=== PATIENT | male | born 1960 | race Caucasian/White ===

== ENCOUNTER → 2024-10-03 08:25 | Outpatient (REF) | payer BC, MEDICARE, SELFPAY ==
[2024-10-03 09:01] LABS: Hematocrit 42.0 % (39.0-52.0); Hemoglobin 13.9 g/dL (13.0-18.0); Mean Corp Hgb Conc. 33.1 g/dL (33.0-37.0); Mean Corpuscular Volume 88.8 fL (80.0-94.0); Nucleated Red Blood Cells % 0 % (-); Platelet Count 234 10^3/uL (130-400); Red Cell Dist. Width 13.2 % (11.5-14.5)
[2024-10-03 09:52] LABS: ALT (SGPT) 26 U/L (0-50); AST (SGOT) 25 U/L (17-59); Albumin 4.4 g/dl (3.5-5.0); Alkaline Phosphatase 47 U/L (38-126); Blood Urea Nitrogen 22 mg/dl (9-20); Calcium 9.5 mg/dl (8.4-10.2); Carbon Dioxide 25 mmol/L (22-30); Chloride 108 mmol/L (98-107); Glucose 93 mg/dl (70-99); HDL Cholesterol 64 mg/dl; LDL Cholesterol, Calculated 84 mg/dl; Potassium 4.6 mmol/L (3.5-5.1); Sodium 139 mmol/L (135-145); Total Protein 6.9 g/dl (6.3-8.2); Very Low Density Lipoprotein 9 mg/dl (0-30); eGFR > 60.00
[2024-10-03 10:09] LABS: PSA, Total - Screen 1.92 ng/ml (0.0-4.0)
== END ==
LOC: RCS 08:25
PROVIDERS: ATTENDING PHYSICIAN Student in an Organized Health Care Education/Training Program
DX: R07.89 Other chest pain (principal); Z00.00 Encounter for general adult medical examination without abnormal findings; E78.00 Pure hypercholesterolemia, unspecified; R53.83 Other fatigue; Z12.5 Encounter for screening for malignant neoplasm of prostate
CPT/HCPCS: 93017; 36415; 80053; 80061; 84443; 85025; G0103